=== PATIENT | male | born 1960 | race Caucasian/White ===

== ENCOUNTER 2020-09-11 21:46 | Emergency (ER) | payer MEDICAID ==
[~2020-09-11] VITALS: Ht 160 cm; Wt 70.0 kg
[~2020-09-11 21:46] MED LIST: ALBU05 NEB; ALBU6.7H9 INH; FLUT1DIS3 INH; IPRA3AMP9 NEB; LOSA50TA3 PO; P20 MT; SIMV20TA2 PO
[2020-09-11 21:49] VITALS: BP 175/109
[2020-09-11] MEDS ORDERED: ALBUTEROL (0.083%) 2.5MG/3ML NEB HHN STA (22:26)
[2020-09-11] MEDS ORDERED: IPRATROPIUM BROMIDE (0.02%) 0.5MG/2.5ML NEB HHN STA (22:26)
[2020-09-11] MEDS ORDERED: PREDNISONE 20MG TABLET PO STA (22:26)
[2020-09-11] MEDS ORDERED: P20 MT (23:19)
[2020-09-11] MEDS ORDERED: ALBU2.5V13 NEB (23:19)
== END 2020-09-11 23:36 | disposition home or self-care (01) ==
LOC: ER 21:46
DX: J45.909 Unspecified asthma, uncomplicated (principal); Z99.81 Dependence on supplemental oxygen; G89.29 Other chronic pain; I10 Essential (primary) hypertension; Z79.899 Other long term (current) drug therapy
CPT/HCPCS: 94640; 99283; J7512; Z7610

== ENCOUNTER 2021-04-26 00:09 | Emergency (ER) | payer MEDICAID ==
[~2021-04-26] VITALS: Ht 157.5 cm; Wt 74.0 kg
[~2021-04-26 00:09] MED LIST changes: +ALBU2.5V13 NEB
[2021-04-26] MEDS ORDERED: IPRATROPIUM BROMIDE (0.02%) 0.5MG/2.5ML NEB HHN STA (04:05)
[2021-04-26] MEDS ORDERED: METHYLPREDNISOLONE SOD SUCC 125 MG/2 ML VIAL IV STA (04:05)
[2021-04-26] MEDS: ALBUTEROL (0.083%) 2.5MG/3ML NEB HHN SCH ×3 (04:10→05:06)
[2021-04-26] MEDS ORDERED: MAGNESIUM 2 G PREMIX 50 ML IV ONE (04:15)
[2021-04-26] MEDS ORDERED: IPRATROPIUM/ALBUTEROL 0.5-3(2.5)MG/3ML NEB ONE (04:23)
[2021-04-26 04:41] LABS: BASOPHILS % 1.2 % (0.0-2.0); EOSINOPHILS % 6.1 % (0.0-5.0); HEMATOCRIT. 51.2 % (42.0-52.0); HEMOGLOBIN. 16.9 g/dL (14.0-18.0); LYMPHOCYTES % 19.7 % (20.0-50.0); MEAN CORPUSCULAR HEMOGLOBIN 32.2 pg (28.0-32.0); MEAN CORPUSCULAR VOLUME 97.4 fL (80.0-94.0); MEAN PLATELET VOLUME 9.7 fl (7.4-10.4); MONOCYTES % 9.6 % (2.0-8.0); NEUTROPHILS % 63.4 % (40.0-76.0); PLATELET 212 x1000/uL (130-400); RED BLOOD CELL COUNT 5.26 mill/uL (4.7-6.1); RED CELL DISTRIBUTION WIDTH 14.8 % (11.6-14.6)
[2021-04-26 05:00] LABS: CHLORIDE 110 mEq/L (98-107)
[2021-04-26 09:35] VITALS: BP 156/90
[2021-04-26] MEDS ORDERED: CLONIDINE 0.1MG TABLET PO PRN (11:15)
[2021-04-26] MEDS ORDERED: HYDROCODONE/ACETAMINOPHEN 5/325MG TABLET PO PRN (11:15)
[2021-04-26] MEDS ORDERED: IPRATROPIUM/ALBUTEROL 0.5-3(2.5)MG/3ML NEB HHN PRN (11:15)
[2021-04-26] MEDS ORDERED: LORAZEPAM 0.5MG TABLET PO PRN (11:15)
[2021-04-26] MEDS ORDERED: DOCUSATE SODIUM 100MG CAPSULE PO PRN (11:15)
[2021-04-26] MEDS ORDERED: ONDANSETRON HCL 4MG/2ML INJ IV PRN (11:15)
[2021-04-26] MEDS ORDERED: ACETAMINOPHEN 325MG TABLET PO PRN ×2 (11:15)
[2021-04-26] MEDS ORDERED: LORATADINE 10MG TABLET PO SCH (12:00)
[2021-04-26] MEDS ORDERED: FAMOTIDINE 20MG TABLET PO SCH (12:00)
[2021-04-26] MEDS ORDERED: LOSARTAN POTASSIUM 50 MG TABLET PO SCH (12:00)
[2021-04-26] MEDS ORDERED: METHYLPREDNISOLONE SOD SUCC 40 MG/ML VIAL IV SCH (14:00)
[2021-04-26] MEDS ORDERED: MONTELUKAST SODIUM 10MG TABLET PO SCH (17:00)
[2021-04-26] MEDS ORDERED: ATORVASTATIN CALCIUM 20MG TABLET PO SCH (21:00)
== END 2021-04-26 11:09 | disposition short-term general hospital (02) ==
LOC: ER 00:39 → EDBEDREQ 04:15 → EDBEDREQTM 05:36 → EDBEDREQ 05:36 → CANBEDREQ 08:34 → ER 11:09
DX: J96.91 Respiratory failure, unspecified with hypoxia (principal); J45.902 Unspecified asthma with status asthmaticus; Z79.899 Other long term (current) drug therapy; Z20.822 Contact with and (suspected) exposure to COVID-19
CPT/HCPCS: 36415; 71045; 80053; 83605; 83880; 84484; 85025; 87040; 93005; 94640; 96365; 96375; 99291; C9803; J2930; J3475; U0003; U0005; Z7610

== ENCOUNTER 2021-09-16 08:09 | Emergency (ER) | payer OTHER ==
[~2021-09-16] VITALS: Ht 157.5 cm; Wt 70.0 kg
[2021-09-16 08:13] VITALS: BP 150/87
[2021-09-16] MEDS ORDERED: METHYLPREDNISOLONE SOD SUCC 125 MG/2 ML VIAL IV STA (08:16)
[2021-09-16] MEDS ORDERED: ALBUTEROL (0.083%) 2.5MG/3ML NEB HHN STA (08:16)
[2021-09-16] MEDS ORDERED: IPRATROPIUM BROMIDE (0.02%) 0.5MG/2.5ML NEB HHN STA (08:16)
[2021-09-16] MEDS ORDERED: MAGNESIUM 2 G PREMIX 50 ML IV STA (08:16)
[2021-09-16 09:06] LABS: BASOPHILS % 0.9 % (0.0-2.0); HEMATOCRIT. 49.4 % (42.0-52.0); HEMOGLOBIN. 16.8 g/dL (14.0-18.0); LYMPHOCYTES % 14.1 % (20.0-50.0); MEAN CORPUSCULAR HEMOGLOBIN 32.7 pg (28.0-32.0); MEAN CORPUSCULAR VOLUME 96.2 fL (80.0-94.0); MEAN PLATELET VOLUME 9.7 fl (7.4-10.4); MONOCYTES % 8.6 % (2.0-8.0); NEUTROPHILS % 71.4 % (40.0-76.0); PLATELET 178 x1000/uL (130-400); RED BLOOD CELL COUNT 5.14 mill/uL (4.7-6.1); RED CELL DISTRIBUTION WIDTH 15.5 % (11.6-14.6)
[2021-09-16 09:13] LABS: CHLORIDE 108 mEq/L (98-107)
[2021-09-16] MEDS ORDERED: AMOX-424 MT (11:45)
[2021-09-16] MEDS ORDERED: ALBU6.7H9 INH (11:45)
[2021-09-16] MEDS ORDERED: P50 MT (11:45)
== END 2021-09-16 12:10 | disposition home or self-care (01) ==
LOC: ER 08:09
DX: J45.901 Unspecified asthma with (acute) exacerbation (principal); J18.0 Bronchopneumonia, unspecified organism; I10 Essential (primary) hypertension; R94.31 Abnormal electrocardiogram [ECG] [EKG]
CPT/HCPCS: 36415; 71045; 80053; 83880; 84484; 85025; 93005; 94644; 96365; 96375; 99285; J2930; J3475; Z7610

== ENCOUNTER 2022-03-05 16:05 | Emergency (ER) | payer OTHER ==
[~2022-03-05] VITALS: Ht 157.5 cm; Wt 73.0 kg
[~2022-03-05 16:05] MED LIST changes: +AMOX-424 MT; +P50 MT
[2022-03-05 16:52] VITALS: BP 153/90
== END 2022-03-06 01:44 | disposition left against medical advice (07) ==
LOC: ER 16:05
DX: Z53.21 Procedure and treatment not carried out due to patient leaving prior to being seen by health care provider (principal)